=== PATIENT | male | born 1960 | race Caucasian/White ===

== ENCOUNTER → 2017-11-23 | Outpatient (CLI) | payer BC ==
[~2017-11-23] MED LIST: ASPEC325 PO; CHOL100010 PO; FRRG PO; GLUC1CAP33 PO; LOSA1TAB PO; MULT-506 PO; OMEG10007 PO
--- NOTE | 2017-11-23 16:56 | DIAGNOSTIC IMAGING REPORT ---
FOOT MIN 3 VIEWS ROUTINE CLINICAL HISTORY: 57 years-old Male presenting with ACUTE FOOT PAIN. TECHNIQUE: Frontal, oblique, and lateral views of the right foot were obtained. COMPARISON: None. FINDINGS: Slight varus angulation of the first metatarsal. The angle between the first metatarsal and proximal phalanx of the first toe is 20 degrees, which is abnormal (normal less than 15 degrees on weightbearing radiographs). Minimal osteophytosis at the first metatarsophalangeal joint. No acute fracture or subluxation. No other degenerative changes are evident. No radiographic soft tissue abnormality. IMPRESSION: 1. No acute osseous injury. 2. Metatarsus primus varus and suggestion of hallux valgus deformity, which can be a source of pain. However, weightbearing radiographs would be needed to confirm this finding. Electronically signed by: Dylon Dawn M.D. 11/23/2017 4:55 PM Dictated Date/Time: 11/23/2017 4:52 PM
== END | disposition home or self-care (01) ==
LOC: C.RAD1850 16:41
PROVIDERS: ATTEND Family Medicine
DX: M79.671 Pain in right foot (principal); Z88.8 Allergy status to other drugs, medicaments and biological substances

== ENCOUNTER → 2017-12-01 | Outpatient (CLI) | payer BC ==
--- NOTE | 2017-12-01 18:21 | DIAGNOSTIC IMAGING REPORT ---
RIGHT FOOT 3 VIEWS, WEIGHT BEARING HISTORY: Right foot pain. COMPARISON: Right foot 11/23/2017. FINDINGS: No acute fracture or dislocation within the right foot. The Lisfranc joint is intact. No significant soft tissue swelling. There is mild metatarsus primus varus. There is also mild valgus deformity of the fifth metatarsal with associated varus deformity of the fifth toe. 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 IMPRESSION: 1. No acute fracture or dislocation within the right foot. 2. Mild deformity of the first and fifth metatarsals as described above. Electronically signed by: Edmond Donaldson M.D. 12/01/2017 6:20 PM Dictated Date/Time: 12/01/2017 6:13 PM
== END | disposition home or self-care (01) ==
LOC: C.RAD1850 16:30
PROVIDERS: ATTEND Family Medicine
DX: I10 Essential (primary) hypertension (principal); M79.671 Pain in right foot